=== PATIENT | female | born 1930 | race Caucasian/White ===

== ENCOUNTER 2018-05-02 00:33 | Inpatient (IN) ==
--- NOTE | 2018-05-02 01:46 | Emergency Department Note ---
Disposition Clinical Impression: Sinus tachycardia, Generalized weakness Disposition: Admitted As Inpatient Condition: Fair Time of Disposition: 05:48 General Adult HPI - General Stated complaint: rapid hr and weakness Time Seen by Provider: 05/02/18 01:01 Source: patient Mode of arrival: ambulatory Limitations: no limitations Nursing Notes Reviewed: Yes Vital Signs Reviewed: Yes - History of Present Illness HPI Narrative: Patient is is an 87-year-old female who presents to [facility] ED with a chief complaint of rapid heart rate and generalized weakness. States she was admitted to the [facility] 2 days ago and was just discharged yesterday. States she went home and gradually her heart rate started going up again and she became so weak that she was just sitting there for 3 hours not moving. Her son states that he was very concerned since she lives at home by herself. Patient denies any chest pain or difficulty breathing. No abdominal pain, problems with urination or bowel movements. Past medical history significant for atrial fibrillation. Patient states she was discharged on 50 mg of metoprolol extended release. Onset (ago): hour(s) Pain Severity: moderate Consistency: constant, Worsening Improves with: nothing Worsens with: nothing Associated symptoms: Reports: weakness. Denies: chest pain, cough, fever/chills , nausea/vomiting, shortness of breath Treatments Prior to Arrival: none - Related Data Home Medications Medication Instructions Recorded Confirmed Aspirin [Adult Low Dose Aspirin EC] 81 mg PO DAILY 11/19/15 05/02/18 Calcium Carbonate/Vitamin D3 1 tab PO BID 11/19/15 05/02/18 [Calcium 500-Vit D3 400 Tablet] Galantamine HBr [Razadyne ER] 24 mg PO DAILY 11/19/15 05/02/18 Krill/Om-3/Dha/Epa/Phospho/Ast 2 cap PO DAILY 11/19/15 05/02/18 [Krill Oil 1,000 mg Softgel] Multivitamin [Multi-Day Vitamins] 1 tab PO DAILY 11/19/15 05/02/18 Tiotropium [Spiriva] 1 cap IH DAILY 11/19/15 05/02/18 Vitamin E Acid Succinate [Vitamin 200 unit PO DAILY 11/19/15 05/02/18 E] Budesonide [Pulmicort] 0.5 mg IH BID 08/09/16 05/02/18 Potassium Chloride [Klor-Con 10] 5 meq PO DAILY 10/23/16 05/02/18 Arformoterol Tartrate [Brovana] 15 mcg IH BID 11/13/16 05/02/18 Furosemide [Lasix] 10 mg PO DAILY 05/02/18 05/02/18 Previous Rx's Medication Instructions Recorded Metoprolol Succinate 100 mg PO DAILY #30 tab.er.24h 05/01/18 Allergies Allergy/AdvReac Type Severity Reaction Status Date / Time No Known Allergies Allergy Verified 04/30/18 12:34 All systems ED: reviewed and negative except as stated. Past Medical History - Past Medical History Attestation: Yes The following information was validated with the patient. Source: patient Medical history: Reports: arthritis, COPD, other Surgical history: Reports: appendectomy, cholecystectomy, hysterectomy, other Psychiatric history: Reports: no psych history - Social History Smoking Status: Former smoker Smokeless Tobacco Status: No Alcohol use: Reports: none Drug use: Reports: none Physical Exam - General Limitations: no limitations General appearance: alert, in no apparent distress - Head Head exam: atraumatic, normocephalic, normal inspection - Eye Eye exam: Present: EOMI - ENT ENT exam: normal exam, normal oropharynx, mucous membranes moist - Neck Neck exam: Present: normal inspection, full ROM, trachea midline - Chest Chest inspection: Present: normal inspection, symmetric chest wall rise - Respiratory Respiratory exam: Present: normal lung sounds bilaterally - Cardiovascular Cardiovascular exam: Present: normal rhythm, tachycardia - Abdominal Exam Abdominal exam: Present: soft, Non-Tender. Absent: tenderness, distention, guarding, rebound, rigidity - Extremities Exam Extremities exam: Present: normal inspection, full ROM. Absent: tenderness, pedal edema - Neurological Exam Neurological exam: Present: alert, oriented X3 - Psychiatric Psychiatric exam: Present: normal affect, normal mood - Skin Skin exam: Present: warm, dry, intact, normal color Course Course Narrative: Patient seen and examined. Concerned about rapid heart rate and generalized weakness. On the monitor, it appears she is in sinus tachycardia. EKG also shows that she is in sinus tachycardia. There does appear to be possible underlying multiple P waves though the EKG morphology does not appear to be a flutter. The tachycardia is very regular with P waves and does not appear to be in atrial fibrillation. Dysrhythmia workup was ordered. We will check electrolytes. - Reevaluation(s) Reevaluation #1: Labwork unremarkable. She does look like she is slightly dehydrated. We will give a liter of IV fluids to see if this also helps with her heart rate. We will reassess. Time: 03:02 Reevaluation #2: Patient's heart rate remained persistently in the 120s. 2.5 mg of Lopressor given via IV without response. Patient is extremely concerned about the patient 's heart rate and that she is so weak since she lives alone. We will admit for generalized weakness, persistent tachycardia. 20mg of cardizem was ordered. Time: 05:14 Reevaluation #3: Patient admitted to hospitalist in stable condition. Time: 05:48 Vital Signs Temperature 97.7 F 05/02/18 01:55 Pulse Rate 129 05/02/18 01:55 Respiratory Rate 18 05/02/18 01:55 Blood Pressure 122/97 05/02/18 01:55 O2 Sat by Pulse Oximetry 96 05/02/18 01:55 Temperature 97.7 F 05/02/18 01:55 Pulse Rate 128 05/02/18 05:21 Respiratory Rate 20 05/02/18 05:21 Blood Pressure 116/92 05/02/18 05:21 O2 Sat by Pulse Oximetry 92 05/02/18 05:21 Oxygen Delivery Oxygen Delivery Nasal Cannula Medical Decision Making - Medical Records Medical records reviewed: Yes I reviewed the patient's medical records. - Lab Data Lab results reviewed: Yes I reviewed the patient's lab results. Result diagrams: 05/02/18 01:47 05/02/18 01:47 Lab Results 05/02/18 05/02/18 05/02/18 Range/Units 01:47 01:47 01:47 WBC 5.4 (4.3-11.1) K/mcL RBC 3.89 (3.82-4.97) M/mcL Hgb 12.4 (11.5-15.4) g/dL Hct 37.7 (35.3-44.9) % MCV 96.9 (83.0-100.0) fL MCH 31.9 (28.0-33.3) pg MCHC 32.9 (31.6-35.5) g/dL RDW 13.6 (11.5-14.5) % Plt Count 173 (140-400) K/mcL MPV 10.2 (9.4-12.4) fL Immature Gran % 0.2 (0-4) % Seg Neutrophils % 70.8 % Lymphocytes % 5.2 % Monocytes % 17.3 % Eosinophils % 5.8 % Basophils % 0.7 % Neutrophils # 3.8 (1.6-8.9) K/mcL Lymphocytes # 0.3 L (0.6-4.6) K/mcL Monocytes # 0.9 (0.0-1.3) K/mcL Eosinophils # 0.3 (0.0-0.6) K/mcL Basophils # 0.0 (0.0-0.2) K/mcL PT 11.3 (9.4-12.1) Seconds INR 1.0 APTT 28.9 (26.0-36.0) Seconds Sodium 137 (136-145) mEq/L Potassium 4.4 (3.5-5.1) mEq/L Chloride 106 (98-107) mEq/L Carbon Dioxide 25 (23-29) mEq/L BUN 28 H (8-23) mg/dL Creatinine 0.62 (0.60-1.20) mg/dL Est GFR ( Amer) > 60 (> 60) Est GFR (Non-Af Amer) > 60 (> 60) BUN/Creatinine Ratio 45 H (6-26) Glucose 100 (70-105) mg/dL Calculated Osmolality 290 (280-300) Calcium 9.5 (8.6-10.3) mg/dL Magnesium 2.0 (1.6-2.6) mg/dL Troponin I < 0.03 (< 0.04) ng/mL TSH 0.796 (0.340-5.600) mcIU/mL - Radiology Data Radiology results reviewed: Yes I reviewed the patient's radiology results. Chest X-Ray 05/02/18 01:24 IMPRESSION: No acute abnormality. D/ / José Antonio Barnes MD / José Antonio Barnes MD Interpreting Provider: José Antonio Barnes MD - EKG Data EKG #1 EKG attestation: Yes I reviewed and interpreted this EKG. EKG results narrative: EKG done at 1:00 shows sinus tachycardia with a rate of [address] elevation or depression. Right axis deviation. Appears unchanged from prior EKG done 04/30/2018. Attestation Statement - Attestation Attestation: Dr Luong note: Patient has been seen in conjunction with resident Dr. Jennifer Vargas; please see her charting for complete documentation. Assessment [id number] time with the patient and agree with the patient's treatment and disposition. No pain; persistent /regular tachycardia despite iv fluids and iv lopressor; pt of Dr Mark; pt seen @ outside facility one day ago , but it was for A fib and she has undergone some medication changes in the past 2 days; no n/v/d or fever; son is @ bedside;
[2018-05-02 02:02] LABS: Basophils % 0.7 %; Eosinophils # 0.3 K/mcL (0.0-0.6); Eosinophils % 5.8 %; Hematocrit 37.7 % (35.3-44.9); Hemoglobin 12.4 g/dL (11.5-15.4); Immature Granulocytes % 0.2 % (0-4); Lymphocytes # 0.3 K/mcL (0.6-4.6); Lymphocytes % 5.2 %; Mean Corpuscular HGB Conc 32.9 g/dL (31.6-35.5); Mean Corpuscular Hemoglobin 31.9 pg (28.0-33.3); Mean Corpuscular Volume 96.9 fL (83.0-100.0); Mean Platelet Volume 10.2 fL (9.4-12.4); Monocytes # 0.9 K/mcL (0.0-1.3); Monocytes % 17.3 %; Neutrophils # 3.8 K/mcL (1.6-8.9); Platelet Count 173 K/mcL (140-400); Red Blood Count 3.89 M/mcL (3.82-4.97); Red Cell Distribution Width 13.6 % (11.5-14.5); Segmented Neutrophils % 70.8 %
[2018-05-02 02:10] LABS: Prothrombin Time 11.3 Seconds (9.4-12.1)
[2018-05-02 02:13] LABS: Activated Partial Thrombo Time 28.9 Seconds (26.0-36.0)
[2018-05-02 02:22] LABS: BUN/Creatinine Ratio 45 (6-26); Blood Urea Nitrogen 28 mg/dL (8-23); Calcium 9.5 mg/dL (8.6-10.3); Carbon Dioxide 25 mEq/L (23-29); Chloride 106 mEq/L (98-107); Glucose 100 mg/dL (70-105); Osmolality,Calculated 290 (280-300); Potassium 4.4 mEq/L (3.5-5.1); Sodium 137 mEq/L (136-145); eGFR For Non-African Americans > 60 (> 60)
[2018-05-02 02:23] LABS: Troponin I < 0.03 ng/mL (< 0.04)
[2018-05-02 02:36] LABS: Thyroid Stimulating Hormone 0.796 mcIU/mL (0.340-5.600)
[2018-05-02] MEDS ORDERED: 0.9 % Sodium Chloride 1,000 ML IVC ONE (02:44)
[2018-05-02] MEDS ORDERED: *HR* Metoprolol 5 MG/5 ML VIAL IVP ONE (04:19)
[2018-05-02] MEDS ORDERED: Naloxone 0.4 MG/ML INJ IVP PRN (08:28)
--- NOTE | 2018-05-02 08:51 | Internal Med History&Physical ---
Date of Encounter: 05/02/18 Time of Encounter: 08:16 Internal Medicine - H&P: HPI Chief complaint: fatigue and tiredness History of present illness: Ms. Doty is a 87 year old female with past medical history of atrial fibrillation, hypertension, COPD, NPH, Alzheimer's dementia, gout, spinal stenosis and scoliosis who was recently admitted add [facility] for 2 days for elevated heart rate comes back with complain cough, feeling tired. Caregiver at home noticed patient was feeling tired and was lethargic for 3 hours and when she took her vitals her heart rate was elevated in the 120s. Patient's son being concerned of previous episode approximately her to the ER again. Her EKG in ER was noted to have sinus tachycardia without ischemic changes. Patient received the diltiazem and metoprolol in the ER for heart rate control. Patient denies any chest pain, difficulty breathing, abdominal pain, bowel or urinary complaints, lightheadedness or headaches. Per his son patient has on and off confusion more at night due to her Alzheimer's dementia. Patient currently denying any tingling numbness or weakness. Past Med Surg Social Fam HX - Past Medical History Medical history: arthritis, atrial fibrillation, COPD, hypertension, other (NPH , Spinal stenosis, Gout, Alzihemers dementia) Additional medical history: DJD. HIP PAIN. LIPOSARCOMA OF THE RETROPERITONEUM. ONYCHOMYCOSIS. L THUMB PROXIMAL PHALANX LONG FINGER FX, MINIMAL DISPLACEMENT. LEFT INDEX FINGER PROXIMAL PHALANX FX, NONDISPLACED. OA. H/O COLONIC POLYPS. OSTEOPENIA. FORMER SMOKER, QUIT . LEUKOPENIA. MOLE. H/O DIVERTICULOSIS. REACTIVE AIRWAY DISEASE. HEMORRHOIDS. OVARIAN CANCER. SCOLIOSIS. PAROXSYMAL AFIB. LUNG NODULE. PULMONARY HTN Psychiatric history: no psych history - Past Surgical History Surgical History: appendectomy, cholecystectomy, hysterectomy, other Additional surgical history: 10/23/16 EGD/COLONOSCOPY [email or web address] [place]. LEFT FOOT - Social History Smoking Status: Former smoker Smokeless Tobacco Status: No Alcohol use: none Drug use: none Internal Medicine - H&P: Meds Aspirin [Adult Low Dose Aspirin EC] 81 mg PO DAILY 11/19/15 [History] Calcium Carbonate/Vitamin D3 [Calcium 500-Vit D3 400 Tablet] 1 tab PO BID [History] Galantamine HBr [Razadyne ER] 24 mg PO DAILY 11/19/15 [History] Krill/Om-3/Dha/Epa/Phospho/Ast [Krill Oil 1,000 mg Softgel] 2 cap PO DAILY 11/18 [History] Multivitamin [Multi-Day Vitamins] 1 tab PO DAILY 11/19/15 [History] Tiotropium [Spiriva] 1 cap IH DAILY 11/19/15 [History] Vitamin E Acid Succinate [Vitamin E] 200 unit PO DAILY 11/19/15 [History] Potassium Chloride [Klor-Con 10] 10 meq PO DAILY 10/23/16 [History] Arformoterol Tartrate [Brovana] 15 mcg IH BID 11/13/16 [History] Metoprolol Succinate 100 mg PO DAILY #30 tab.er.24h 05/01/18 [Rx] Albuterol Sulfate [Ventolin Hfa] 2 puff IH Q6H PRN 05/02/18 [History] Budesonide 1 mg IH BID 05/02/18 [History] Furosemide [Lasix] 10 mg PO DAILY 05/02/18 [History] 3 Allergy/AdvReac Type Severity Reaction Status Date / Time No Known Allergies Allergy Verified 04/30/18 12:34 All Systems PM: A 10-system review of systems was performed and is negative for pertinent findings except as documented above in the HPI. - Constitutional Vitals: Temp Pulse Resp BP Pulse Ox 98.0 F 103 19 124/88 95 05/02/18 07:15 05/02/18 07:15 05/02/18 07:15 05/02/18 07:15 05/02/18 07:15 Exam: Const: Vital signs listed above. Appears as stated age. In no acute distress. Alert and oriented Xs 3. Confused at time. No mood disorders noted, calm affect. Eyes: Sclera white, conjunctiva clear, lids are without lag. PERRLA. EOMI ENT: Grossly normal hearing. Oropharanx clear and moist without erythema. Gums pink, good dentition. Lymph/Neck: No masses, thyromegaly, or abnormal cervical notes. No bruit. Tracheal midline. Cardio: RRR, Normal S1, S2, soft systolic murmurs. No rubs or gallops. Skin warm and dry. No peripheral edema. Respiratory: Chest symmetrical, respirations non-labored. No dullness or flatness. Clear bilaterally to auscultation, non-tender to palpitation. Musculo: scoliosis noted. No mela gait disturbance noted. No cyanosis or edema. Pulses normal in all 4 extremities. No atrophy or abnormal movements. Appropriate muscle strength bilaterally. Neurologic: No focal deficits, cranial nerves II-XII grossly intact with normal sensation, reflexes, coordination, muscle strength and tone. GI/Abdomen: Soft, non tender, non distended, no hepatosplemomegaly, normal bowel sounds, no masses noted. Skin: No ulcers or rash noted, warm, dry. Internal Med - H&P Results - Labs CBC & Chem 7: 05/02/18 01:47 05/02/18 01:47 - Assessment and plan (1) Arrhythmia Current Visit: Yes Status: Acute Assessment and plan: - Patient has unremarkable labs. Telemetry reviewed showed occasions of junctional rhythm now in sinus bradycardia. Occasions of SVTs noted. EKG and telemetry with the atrial flutter with variable block on occasions. - Admitted inpatient - Continue telemetry monitoring for now. Possibility of sick sinus syndrome. We will obtain cardiology consultation for further recommendation. - Now in sinus bradycardia. Hold Betablocker and Diltiazem for now. - History of atrial fibrillation. Not on anticoagulation due to history of falls due to NPH. Qualifiers: Arrhythmia type: unspecified cardiac arrhythmia Qualified Code(s): I49.9 - Cardiac arrhythmia, unspecified (2) Atrial fibrillation Current Visit: Yes Status: Chronic Assessment and plan: As above Qualifiers: Atrial fibrillation type: paroxysmal Qualified Code(s): I48.0 - Paroxysmal atrial fibrillation (3) COPD (chronic obstructive pulmonary disease) Current Visit: Yes Status: Acute Assessment and plan: We will continue her medications. Qualifiers: Qualified Code(s): J44.9 - Chronic obstructive pulmonary disease, unspecified (4) Generalized weakness Current Visit: Yes Status: Acute (5) Hypertension Current Visit: No Status: Chronic Assessment and plan: - Monitor for now off medication. Home amlodipine was stopped recently Qualifiers: Hypertension type: essential hypertension Qualified Code(s): I10 - Essential (primary) hypertension (6) Gout Current Visit: Yes Status: Acute Assessment and plan: - Not on any home medication. - Currently asymptomatic. We will monitor for now Qualifiers: Qualified Code(s): M10.9 - Gout, unspecified (7) Spinal stenosis Current Visit: Yes Status: Acute Qualifiers: Qualified Code(s): M48.00 - Spinal stenosis, site unspecified (8) NPH (normal pressure hydrocephalus) Current Visit: Yes Status: Acute - Time Spent With Patient Total time spent is greater than 50% in coordination of care (as documented) at patient's floor/unit and/or counseling patient:
--- NOTE | 2018-05-02 12:08 | Cardiology Consult Note ---
<Hiren Larsen R - Last Filed: 05/02/18 12:10> Date of Encounter: 05/02/18 Time of Encounter: 12:07 Assessment and Plan (1) Atrial fibrillation Current Visit: Yes Status: Chronic Known hx of PAF, second admission in recent days for A-Fib RVR. Pt has dementia and is unable to recall specific events. Reportedly, caregiver noticed she was lethargic with HR 120s. Home medication included BB--was recently switched to Toprol XL 100mg daily. Given pt's dementia she has previously been deemed a poor candidate for full anticoagulation. On ASA only. [id number] 4(HTN, Age, Female). Pt now back in SR. Plan to start Sotalol 40mg BID for rhythm control. Rhythm control strategy will also help with CVA reduction since she cannot be anticoagulated. Will not restart home BB. Daily ECGs. Will need monitored for 5 Sotalol doses to monitor QTc. Baseline ECG 05/02/18 0538 A-Flutter, rate 104. QT/QTc 363/440ms. TTE 09/2016 EF preserved, moderate biatrial enlargement. Recheck TTE. Continue to follow. Discussed and reviewed with Dr. Luke Mark. Qualifiers: Atrial fibrillation type: paroxysmal Qualified Code(s): I48.0 - Paroxysmal atrial fibrillation Discussion w patient/family: The assessment and plan as outlined above was discussed with the patient and/or family members who expressed understanding and agreement. All questions were answered. Thank you for involving us in the care of your patient. Please call with any questions. I will discuss and review with Dr. Luke Mark and make changes as necessary. History of Present Illness Consult date: 05/02/18 Consult reason: A-Fib Chief complaint: weakness History of present illness: Ms. Doty is a 87 year old female with a history of supplement oxygen dependent COPD, pulmonary hypertension, paroxysmal AF, and dementia (poor candidate for Coumadin). She was recently d/c'd from [facility] for A-Fib RVR, returns to ED with complaints of cough, feeling tired. Caregiver at home noticed patient was feeling tired and was lethargic for 3 hours and when she took her vitals her heart rate was elevated in the 120s. Pt received Metoprolol and Cardizem in the ED after she was found to be tachycardic. Initial EKG appeared to be sinus tach, but subsequent ECG pt was in A-Flutter. Currently back in SR. Previous testing: TTE 10/09/2016: LVEF 60%. Normal LV, RV size and function. Mild diastolic dysfunction. Moderate atrial enlargement. Moderate pulmonary hypertension, RVSP 51 mmHg. Holter monitor 09/06/2016: Average heart rate 72. Rare PVCs and occasional PACs. Several brief episodes of SVT, longest 13 beats. Morphology consistent with atrial tachycardia. No pauses. Stress test 05/15/2013: Perfusion, ECG negative for ischemia. Event monitor 12/21/2016: Sinus rhythm and sinus bradycardia. PACs were seen, atrial couplet was noted. Past Med Surg Social Fam HX - Past Medical History Medical history: arthritis, atrial fibrillation, COPD, hypertension, other Additional medical history: DJD. HIP PAIN. LIPOSARCOMA OF THE RETROPERITONEUM. ONYCHOMYCOSIS. L THUMB PROXIMAL PHALANX LONG FINGER FX, MINIMAL DISPLACEMENT. LEFT INDEX FINGER PROXIMAL PHALANX FX, NONDISPLACED. OA. H/O COLONIC POLYPS. OSTEOPENIA. FORMER SMOKER, QUIT 1980S. LEUKOPENIA. MOLE. H/O DIVERTICULOSIS. REACTIVE AIRWAY DISEASE. HEMORRHOIDS. OVARIAN CANCER. SCOLIOSIS. PAROXSYMAL AFIB. LUNG NODULE. PULMONARY HTN Psychiatric history: no psych history - Past Surgical History Surgical History: appendectomy, cholecystectomy, hysterectomy, other Additional surgical history: 10/23/16 EGD/COLONOSCOPY [email or web address]. LEFT FOOT - Social History Smoking Status: Former smoker Smokeless Tobacco Status: No Alcohol use: none Drug use: none Medications and Allergies Aspirin [Adult Low Dose Aspirin EC] 81 mg PO DAILY 11/19/15 [History] Calcium Carbonate/Vitamin D3 [Calcium 500-Vit D3 400 Tablet] 1 tab PO BID [History] Galantamine HBr [Razadyne ER] 24 mg PO DAILY 11/19/15 [History] Krill/Om-3/Dha/Epa/Phospho/Ast [Krill Oil 1,000 mg Softgel] 2 cap PO DAILY 11/18 [History] Multivitamin [Multi-Day Vitamins] 1 tab PO DAILY 11/19/15 [History] Tiotropium [Spiriva] 1 cap IH DAILY 11/19/15 [History] Vitamin E Acid Succinate [Vitamin E] 200 unit PO DAILY 11/19/15 [History] Potassium Chloride [Klor-Con 10] 10 meq PO DAILY 10/23/16 [History] Arformoterol Tartrate [Brovana] 15 mcg IH BID 11/13/16 [History] Metoprolol Succinate 100 mg PO DAILY #30 tab.er.24h 05/01/18 [Rx] Albuterol Sulfate [Ventolin Hfa] 2 puff IH Q6H PRN 05/02/18 [History] Budesonide 1 mg IH BID 05/02/18 [History] Furosemide [Lasix] 10 mg PO DAILY 05/02/18 [History] 3 Allergy/AdvReac Type Severity Reaction Status Date / Time No Known Allergies Allergy Verified 04/30/18 12:34 All Systems Review: The remainder of the systems were reviewed and are negative Physical Examination Vital Signs, Last 4 Hours Temp Pulse Resp BP Pulse Ox 05/02/18 11:40 97.8 F 64 17 122/72 94 05/02/18 10:15 95 Results 05/02/18 01:47 05/02/18 01:47 - Imaging and Cardiology Echo: report reviewed - EKG Interpretation EKG results cardiology: personally reviewed, other (12 hr tele AVG HR 67, SR) Consult Discharge Plan - Plan Referrals: Timoteo Calixto, [Primary Care Provider] - <Luke Mark - Last Filed: 05/02/18 13:37> Date of Encounter: 05/02/18 - Attending Attestation I have personally performed a face to face evaluation on this patient. I have reviewed and agree with the care plan. History and Exam by me shows: Known history of PAF. Presents with PAF. She is mostly asymptomatic, mostly concerned about elevated heart rate. Will add low dose sotalol. Assessment and Plan Discussion w patient/family: The assessment and plan as outlined above was discussed with the patient and/or family members who expressed understanding and agreement. All questions were answered. Thank you for involving us in the care of your patient. Please call with any questions. History of Present Illness History of present illness: Ms. Doty is a 87 year old female All Systems Review: The remainder of the systems were reviewed and are negative Physical Examination Vital Signs, Last 4 Hours Temp Pulse Resp BP Pulse Ox 05/02/18 11:40 97.8 F 64 17 122/72 94 05/02/18 10:15 95 Results 05/02/18 01:47 05/02/18 01:47
[2018-05-02] MEDS ORDERED: Albuterol 2.5 MG/3 ML NEBULIZER ONE (19:19)
[2018-05-02] MEDS ORDERED: Budesonide Neb 0.5 MG/2 ML IH ONE (19:19)
[2018-05-02] MEDS: Budesonide Neb 0.5 MG/2 ML IH SCH (19:25)
[2018-05-02] MEDS: Albuterol 2.5 MG/3 ML NEBULIZER IH SCH (19:25)
[2018-05-02] MEDS ORDERED: ARFORMOTEROL TARTRATE 15 MCG IH SCH (21:00)
[2018-05-02] MEDS ORDERED: CALCIUM VIT D3 PO SCH (21:00)
[2018-05-02] MEDS ORDERED: Budesonide Neb 0.5 MG/2 ML IH SCH (21:00)
[2018-05-03] MEDS ORDERED: Krill Oil 1,000 Mg PO SCH (09:00)
[2018-05-03] MEDS ORDERED: Tiotropium 18 MCG inhalation IH SCH (09:00)
[2018-05-03] MEDS ORDERED: Galantamine Hbr [Razadyne Er] 24 MG PO SCH (09:00)
[2018-05-03] MEDS: Albuterol 2.5 MG/3 ML NEBULIZER IH SCH ×2 (10:30→22:29)
[2018-05-03] MEDS: Budesonide Neb 0.5 MG/2 ML IH SCH ×2 (10:30→22:29)
[2018-05-03] MEDS: Tiotropium 18 MCG inhalation IH SCH (10:32)
[2018-05-03] MEDS: Cholecalciferol (D-3) 1,000 UNIT TABLET PO SCH (10:54)
[2018-05-03] MEDS: Multivit/Ca/Min/Fe/FA 1 TAB TABLET PO SCH (10:54)
[2018-05-03] MEDS: Aspirin Enteric Coated 81 MG Tablet PO SCH (10:55)
[2018-05-03] MEDS: Furosemide 20 MG TABLET PO SCH (10:55)
[2018-05-03] MEDS: Galantamine Hbr [Razadyne Er] 24 MG PO SCH (10:56)
--- NOTE | 2018-05-03 12:59 | Cardiology Progress Note ---
Date of Encounter: 05/03/18 Time of Encounter: 12:00 Assessment and Plan (1) Atrial fibrillation Current Visit: Yes Status: Chronic Known hx of PAF, second admission in recent days for A-Fib RVR. Pt has dementia and is unable to recall specific events. Reportedly, caregiver noticed she was lethargic with HR 120s. Home medication included BB--was recently switched to Toprol XL 100mg daily. Given pt's dementia she has previously been deemed a poor candidate for full anticoagulation. On ASA only. [id number] 4(HTN, Age, Female). Sotalol 40 mg BID started 05/02/18. Daily ECGs. Will need monitored for 5 Sotalol doses to monitor QTc. Baseline ECG 05/02/18 0538 A-Flutter, rate 104. QT/QTc 363/440ms. ECG 05/03/18, 0545, SR, HR 73, QT/QTc 368/393, QRS 94. s/p two doses. TTE 09/2016 EF preserved, moderate biatrial enlargement. Recheck TTE, results pending. Continue to follow. Discussed and reviewed with Dr. Luke Mark. Qualifiers: Atrial fibrillation type: paroxysmal Qualified Code(s): I48.0 - Paroxysmal atrial fibrillation Discussion w patient/family: The assessment and plan as outlined above was discussed with the patient and/or family members who expressed understanding and agreement. All questions were answered. Thank you for involving us in the care of your patient. Please call with any questions. Subjective Principal diagnosis: PAF Interval history: No new complaints. Continues to feel weak. Objective Vital Signs, Last 4 Hours Temp Pulse Resp BP Pulse Ox 05/03/18 12:16 97.8 F 70 18 149/83 92 05/03/18 10:30 16 98 05/03/18 09:00 98.5 F 72 16 155/91 98 General: Conversant, No Apparent Distress HEENT: Atraumatic, Normocephaly, Mucus Membranes Moist Neck: No JVD, Normal carotid pulses Cardiac: Reg Rate and Rhythm, Normal S1 and S2, No Murmur Lungs: Normal Breath Sounds, No Wheeze, Rales, Rhonchi Neuro: Alert and responsive, No focal deficits noted Abdomen: Soft, Non-Tender Skin: No rashes noted on visualized skin Musculoskeletal: No Chest Wall Tenderness Extremities: No Clubbing, No Cyanosis, No Edema, Normal Pulses Results 05/02/18 01:47 05/02/18 01:47 - Imaging and Cardiology Echo: report reviewed - EKG Interpretation EKG results cardiology: personally reviewed Consult Discharge Plan - Plan Referrals: Timoteo Calixto DO [Primary Care Provider] -
--- NOTE | 2018-05-03 13:46 | Internal Med Progress Note ---
Hospitalist Progress Note - Encounter Date of Encounter: 05/03/18 Time of Encounter: 10:46 - Subjective Interval History: Patient seen and examined this morning. No acute overnight events. Does not offer any complains. Wants to go home. - Exam Vitals: Temp Pulse Resp BP Pulse Ox 97.8 F 70 18 149/83 92 05/03/18 12:16 05/03/18 12:16 05/03/18 12:16 05/03/18 12:16 05/03/18 12:16 Exam: Const: Vital signs listed above. Appears as stated age. In no acute distress. Alert and oriented Xs 3. Confused at time. No mood disorders noted, calm affect. Eyes: Sclera white, conjunctiva clear, lids are without lag. PERRLA. EOMI ENT: Grossly normal hearing. Oropharanx clear and moist without erythema. Gums pink, good dentition. Lymph/Neck: No masses, thyromegaly, or abnormal cervical notes. No bruit. Tracheal midline. Cardio: RRR, Normal S1, S2, soft systolic murmurs. No rubs or gallops. Skin warm and dry. No peripheral edema. Respiratory: Chest symmetrical, respirations non-labored. No dullness or flatness. Clear bilaterally to auscultation, non-tender to palpitation. Musculo: scoliosis noted. No mela gait disturbance noted. No cyanosis or edema. Pulses normal in all 4 extremities. No atrophy or abnormal movements. Appropriate muscle strength bilaterally. Neurologic: No focal deficits, cranial nerves II-XII grossly intact with normal sensation, reflexes, coordination, muscle strength and tone. GI/Abdomen: Soft, non tender, non distended, no hepatosplemomegaly, normal bowel sounds, no masses noted. Skin: No ulcers or rash noted, warm, dry. - Assessment and Plan (1) Arrhythmia Current Visit: Yes Status: Acute (2) Atrial fibrillation Current Visit: Yes Status: Chronic (3) COPD (chronic obstructive pulmonary disease) Current Visit: Yes Status: Acute (4) Generalized weakness Current Visit: Yes Status: Acute (5) Hypertension Current Visit: No Status: Chronic (6) Gout Current Visit: Yes Status: Acute (7) Spinal stenosis Current Visit: Yes Status: Acute (8) NPH (normal pressure hydrocephalus) Current Visit: Yes Status: Acute - Summary of Assessment and Plan Summary of Assessment and Plan: SVT - likely from Afib. Occasions of A-flutter. Started on Sotalol 40 BID for rhythm control as recent admission for the same and as will help CVA risk reduction as pt not on AC( due to falls from NPH) - Home Betablocker stopped. c/w Sotalol. Qtc being monitored by daily EKG. - f/u ECHO. last ECHO 09/2016 with EF 60. Mod PHTN. - Continue telemetry monitoring. COPD - c/w home budesonide and albuterol nebs. Hypertension - Monitor for now off medication. - Home amlodipine was stopped recently. Monitor off meds. DVT ppx - Heparin SC - Time Spent with Patient Total time spent is greater than 50% in coordination of care (as documented) at patient's floor/unit and/or counseling patient: Internal Medicine: Result - Labs CBC & Chem 7: 05/02/18 01:47 05/02/18 01:47 - ABG Interpretation ABG results: PT/INR, D-dimer PT 11.3 Seconds (9.4-12.1) 05/02/18 01:47 Consult Discharge Plan - Plan Referrals: Timoteo Calixto DO [Primary Care Provider] - (1) Arrhythmia Qualifiers: Arrhythmia type: unspecified cardiac arrhythmia Qualified Code(s): I49.9 - Cardiac arrhythmia, unspecified (2) Atrial fibrillation Qualifiers: Atrial fibrillation type: paroxysmal Qualified Code(s): I48.0 - Paroxysmal atrial fibrillation (3) COPD (chronic obstructive pulmonary disease) Qualifiers: Qualified Code(s): J44.9 - Chronic obstructive pulmonary disease, unspecified (5) Hypertension Qualifiers: Hypertension type: essential hypertension Qualified Code(s): I10 - Essential (primary) hypertension (6) Gout Qualifiers: Qualified Code(s): M10.9 - Gout, unspecified (7) Spinal stenosis Qualifiers: Qualified Code(s): M48.00 - Spinal stenosis, site unspecified
[2018-05-03] MEDS ORDERED: *HR* Metoprolol 5 MG/5 ML VIAL IVP ONE ×2 (17:35→17:47)
[2018-05-04] MEDS: *HR* Enoxaparin 40 MG/0.4 ML SYRINGE SQ SCH (06:08)
[2018-05-04 06:48] LABS: BUN/Creatinine Ratio 28 (6-26); Blood Urea Nitrogen 16 mg/dL (8-23); Calcium 9.6 mg/dL (8.6-10.3); Carbon Dioxide 30 mEq/L (23-29); Chloride 105 mEq/L (98-107); Glucose 83 mg/dL (70-105); Osmolality,Calculated 290 (280-300); Potassium 3.8 mEq/L (3.5-5.1); Sodium 140 mEq/L (136-145); eGFR For Non-African Americans > 60 (> 60)
[2018-05-04] MEDS: Galantamine Hbr [Razadyne Er] 24 MG PO SCH (08:06)
[2018-05-04] MEDS: Cholecalciferol (D-3) 1,000 UNIT TABLET PO SCH (08:07)
[2018-05-04] MEDS: Multivit/Ca/Min/Fe/FA 1 TAB TABLET PO SCH (08:07)
[2018-05-04] MEDS: Aspirin Enteric Coated 81 MG Tablet PO SCH (08:07)
[2018-05-04] MEDS: Furosemide 20 MG TABLET PO SCH (08:07)
[2018-05-04] MEDS: *HR* Metoprolol 5 MG/5 ML VIAL IVP PRN ×2 (08:07→16:40)
--- NOTE | 2018-05-04 09:43 | Internal Med Progress Note ---
Hospitalist Progress Note - Encounter Date of Encounter: 05/04/18 Time of Encounter: 09:43 - Subjective Interval History: Patient seen and examined this morning. No acute overnight events. Does not offer any complains. - Exam Vitals: Temp Pulse Resp BP Pulse Ox 98.1 F 77 18 171/88 96 05/04/18 07:37 05/04/18 07:37 05/04/18 07:37 05/04/18 07:37 05/04/18 07:37 Exam: Const: Vital signs listed above. Appears as stated age. In no acute distress. Alert and oriented x2. Confused at time. No mood disorders noted, calm affect. Eyes: Sclera white, conjunctiva clear, lids are without lag. PERRLA. EOMI ENT: Grossly normal hearing. Oropharanx clear and moist without erythema. Gums pink, good dentition. Lymph/Neck: No masses, thyromegaly, or abnormal cervical notes. No bruit. Tracheal midline. Cardio: RRR, Normal S1, S2, soft systolic murmurs. No rubs or gallops. Skin warm and dry. No peripheral edema. Respiratory: Chest symmetrical, respirations non-labored. No dullness or flatness. Clear bilaterally to auscultation, non-tender to palpitation. Musculo: scoliosis noted. No mela gait disturbance noted. No cyanosis or edema. Pulses normal in all 4 extremities. No atrophy or abnormal movements. Appropriate muscle strength bilaterally. Neurologic: No focal deficits, cranial nerves II-XII grossly intact with normal sensation, reflexes, coordination, muscle strength and tone. GI/Abdomen: Soft, non tender, non distended, no hepatosplemomegaly, normal bowel sounds, no masses noted. Skin: No ulcers or rash noted, warm, dry. - Assessment and Plan (1) Arrhythmia Current Visit: Yes Status: Acute (2) Atrial fibrillation Current Visit: Yes Status: Chronic (3) COPD (chronic obstructive pulmonary disease) Current Visit: Yes Status: Acute (4) Generalized weakness Current Visit: Yes Status: Acute (5) Hypertension Current Visit: No Status: Chronic (6) Gout Current Visit: Yes Status: Acute (7) Spinal stenosis Current Visit: Yes Status: Acute (8) NPH (normal pressure hydrocephalus) Current Visit: Yes Status: Acute - Summary of Assessment and Plan Summary of Assessment and Plan: SVT - likely from Afib. Occasions of A-flutter. Started on Sotalol 40 BID for rhythm control as recent admission for the same and as will help CVA risk reduction as pt not on AC( due to falls from NPH) - Home Betablocker stopped. c/w Sotalol. Qtc being monitored by daily EKG. - last ECHO 09/2016 with EF 60. Mod PHTN. 05/03 ECHO show EF 50-55, Severe PHTN, mild DD, Normal wall motion - Episodes of Afib with RVR, Currently in sinus rhythm. Sotalol dose increased to 80 BID. Continue to monitor EKG. - Continue telemetry monitoring. - prn metoprolol for control if Afib with RVR. COPD - c/w home budesonide and albuterol nebs. Hypertension - Monitor for now off medication. - Home amlodipine was stopped recently. Monitor off meds. DVT ppx - Heparin SC - Time Spent with Patient Total time spent is greater than 50% in coordination of care (as documented) at patient's floor/unit and/or counseling patient: Internal Medicine: Result - Labs CBC & Chem 7: 05/02/18 01:47 05/04/18 06:17 Labs: BMP 05/04/18 06:17 Sodium 140 Potassium 3.8 Chloride 105 Carbon Dioxide 30 H BUN 16 Creatinine 0.57 L Glucose 83 Calcium 9.6 - ABG Interpretation ABG results: PT/INR, D-dimer PT 11.3 Seconds (9.4-12.1) 05/02/18 01:47 - Impressions Impressions Echocardiogram 05/03/18 07:00 Impressions: LVEF 50-55%. Normal LV chamber size, wall thickness and sytolic function. Mild left ventricular diastolic dysfunction. Mildly dilated right ventricle. Mild right ventricular hypokinesis. Mildly dilated left atrium.Mildly dilated right atrium. Mild mitral regurgitation. Mild tricuspid regurgitation. Severe pulmonary hypertension. Estimated RA pressure is 10 mmHg. Left Ventricular Wall Motion: Rest Echo Findings All wall segments showed normal motion. Findings: Study Quality * Technically adequate exam. ECG Findings * Normal sinus rhythm. Left Ventricle * LVEF 50-55%. * Normal LV chamber size, wall thickness and sytolic function. * Mild left ventricular diastolic dysfunction. Right Ventricle * Mildly dilated right ventricle. * Mild right ventricular hypokinesis. Left Atrium * Mildly dilated left atrium. Right Atrium * Mildly dilated right atrium. Interatrial Septum * Interatrial septum not well evaluated. Aortic Valve * No aortic regurgitation. * No aortic stenosis. * Trileaflet aortic valve with normal function. * Trileaflet aortic valve. Mitral Valve * Mild mitral regurgitation. Tricuspid Valve * Mild tricuspid regurgitation. * Estimated RVSP is 64 mmHg. * Estimated RA pressure is 10 mmHg. * Severe pulmonary hypertension. Pulmonic Valve * Normal pulmonic valve structure. * Mild pulmonic regurgitation. Aorta * Normally sized aortic root. Pericardium * The pericardium appears normal. IVC * Normal IVC dimensions and inspiratory collapse. Consult Discharge Plan - Plan Referrals: Timoteo Calixto DO [Primary Care Provider] - (1) Arrhythmia Qualifiers: Arrhythmia type: unspecified cardiac arrhythmia Qualified Code(s): I49.9 - Cardiac arrhythmia, unspecified (2) Atrial fibrillation Qualifiers: Atrial fibrillation type: paroxysmal Qualified Code(s): I48.0 - Paroxysmal atrial fibrillation (5) Hypertension Qualifiers: Hypertension type: essential hypertension Qualified Code(s): I10 - Essential (primary) hypertension
--- NOTE | 2018-05-04 10:47 | Cardiology Progress Note ---
Date of Encounter: 05/04/18 Time of Encounter: 10:39 Assessment and Plan (1) Atrial fibrillation Current Visit: Yes Status: Chronic Known hx of PAF, second admission in recent days for A-Fib RVR. Pt has dementia and is unable to recall specific events. Reportedly, caregiver noticed she was lethargic with HR 120s. Home medication included BB--was recently switched to Toprol XL 100mg daily. Given pt's dementia she has previously been deemed a poor candidate for full anticoagulation. On ASA only. [id number] 4(HTN, Age, Female). Sotalol 40 mg BID started 05/02/18. Daily ECGs. Will need monitored for 5 Sotalol doses to monitor QTc. Baseline ECG 05/02/18 0538 A-Flutter, rate 104. QT/QTc 363/440ms. ECG 05/03/18, 0545, SR, HR 73, QT/QTc 368/393, QRS 94. ECG 05/03/18, 1700, atrial fibrillation/flutter with RVR. QT/QTc 281/368, QRS 94. s/p four doses and she remains in NSR. Telemetry review shows avg HR 80. ATrial fibrillation with RVR seen for a couple hours last night. NSR overnight. HR currently 58 bpm. TTE 09/2016 EF preserved, moderate biatrial enlargement. Recheck TTE, results pending. Fifth dose is due at 1800. Monitor EKG. Qualifiers: Atrial fibrillation type: paroxysmal Qualified Code(s): I48.0 - Paroxysmal atrial fibrillation Discussion w patient/family: The assessment and plan as outlined above was discussed with the patient and/or family members who expressed understanding and agreement. All questions were answered. Thank you for involving us in the care of your patient. Please call with any questions. Subjective Principal diagnosis: PAF Interval history: No new complaints. States she is ready to go home. Mildly confused this morning. Objective Vital Signs, Last 4 Hours Temp Pulse Resp BP Pulse Ox 05/04/18 07:37 98.1 F 77 18 171/88 96 General: Conversant, No Apparent Distress HEENT: Atraumatic, Normocephaly, Mucus Membranes Moist Neck: No JVD, Normal carotid pulses Cardiac: Reg Rate and Rhythm, Normal S1 and S2, No Murmur Lungs: Normal Breath Sounds, No Wheeze, Rales, Rhonchi Neuro: Alert and responsive, No focal deficits noted Abdomen: Soft, Non-Tender Skin: No rashes noted on visualized skin Musculoskeletal: No Chest Wall Tenderness Extremities: No Clubbing, No Cyanosis, No Edema, Normal Pulses Results 05/02/18 01:47 05/04/18 06:17 Lab Results 05/04/18 05/04/18 06:17 06:17 Sodium 140 Potassium 3.8 Chloride 105 Carbon Dioxide 30 H BUN 16 Creatinine 0.57 L Glucose 83 Calcium 9.6 Magnesium 1.9 - Imaging and Cardiology Echo: report reviewed - EKG Interpretation EKG results cardiology: personally reviewed Consult Discharge Plan - Plan Referrals: Timoteo Calixto DO [Primary Care Provider] -
[2018-05-04] MEDS: Budesonide Neb 0.5 MG/2 ML IH SCH ×2 (10:57→21:58)
[2018-05-04] MEDS: Albuterol 2.5 MG/3 ML NEBULIZER IH SCH ×2 (10:58→21:58)
[2018-05-04] MEDS: Tiotropium 18 MCG inhalation IH SCH (10:59)
--- NOTE | 2018-05-04 15:12 | Electrocardiograph Report ---
[place] [id number] Test Date: 2018-05-02 Pat Name: Liseth Doty Department: EXAM11 Room: 2A63 Gender: F Research Recruiter: : 1930 Requested By: Jennifer Vargas Order Number: [id number] Reading MD: Jocelyne Lockett Measurements Intervals [place] Rate: 128 P: -45 SD: 168 QRS: 95 QRSD: 85 T: 89 QT: 292 QTc: 426 Interpretive Statements Atrial flutter with 2:1 AV block Right axis deviation Electronically Signed On 05-04-2018 15:10:49 EDT by Jocelyne Lockett
--- NOTE | 2018-05-04 15:21 | Electrocardiograph Report ---
[place] [address] Test Date: 2018-05-02 Pat Name: Liseth Doty Department: EXAM11 Room: 2A63 Gender: F Quality Control Engineer: : 1930 Requested By: Wellington Mckeon Order Number: [id number] Reading MD: Jocelyne Lockett Measurements Intervals [place] Rate: 104 P: SC: QRS: 97 QRSD: 84 T: 87 QT: 363 QTc: 440 Interpretive Statements Atrial flutter with predominant 3:1 AV block Right axis deviation Minimal ST depression, diffuse leads Electronically Signed On 05-04-2018 15:19:48 EDT by Jocelyne Lockett
--- NOTE | 2018-05-04 16:04 | Electrocardiograph Report ---
[place] [id number] Test Date: 2018-05-03 Pat Name: Liseth Doty Department: 109 Room: 2A Gender: F Production Quality Analyst: : 1930 Requested By: Hiren Larsen Order Number: [id number] Reading MD: Jocelyne Lockett Measurements Intervals [place] Rate: 73 P: 79 CA: 141 QRS: 65 QRSD: 94 T: 50 QT: 368 QTc: 393 Interpretive Statements SINUS RHYTHM Electronically Signed On 05-04-2018 16:02:49 EDT by Jocelyne Lockett
[2018-05-05] MEDS: *HR* Metoprolol 5 MG/5 ML VIAL IVP PRN (01:37)
[2018-05-05] MEDS: *HR* Enoxaparin 40 MG/0.4 ML SYRINGE SQ SCH (05:59)
[2018-05-05] MEDS: Budesonide Neb 0.5 MG/2 ML IH SCH ×2 (07:29→21:48)
[2018-05-05] MEDS: Albuterol 2.5 MG/3 ML NEBULIZER IH SCH ×2 (07:29→21:48)
[2018-05-05] MEDS: Tiotropium 18 MCG inhalation IH SCH (07:31)
[2018-05-05] MEDS: Aspirin Enteric Coated 81 MG Tablet PO SCH (07:47)
[2018-05-05] MEDS: Cholecalciferol (D-3) 1,000 UNIT TABLET PO SCH (07:47)
[2018-05-05] MEDS: Multivit/Ca/Min/Fe/FA 1 TAB TABLET PO SCH (07:47)
[2018-05-05] MEDS: Furosemide 20 MG TABLET PO SCH (07:47)
[2018-05-05] MEDS: Galantamine Hbr [Razadyne Er] 24 MG PO SCH (07:51)
[2018-05-05 08:22] LABS: BUN/Creatinine Ratio 37 (6-26); Blood Urea Nitrogen 20 mg/dL (8-23); Calcium 9.3 mg/dL (8.6-10.3); Carbon Dioxide 30 mEq/L (23-29); Chloride 104 mEq/L (98-107); Glucose 83 mg/dL (70-105); Magnesium 2.1 mg/dL (1.6-2.6); Osmolality,Calculated 288 (280-300); Sodium 138 mEq/L (136-145); eGFR For Non-African Americans > 60 (> 60)
--- NOTE | 2018-05-05 10:16 | Cardiology Progress Note ---
Date of Encounter: 05/05/18 Time of Encounter: 10:10 Assessment and Plan (1) Atrial fibrillation Current Visit: Yes Status: Chronic Known hx of PAF, second admission in recent days for A-Fib RVR. Pt has dementia and is unable to recall specific events. Reportedly, caregiver noticed she was lethargic with HR 120s. Home medication included BB--was recently switched to Toprol XL 100mg daily. Given pt's dementia she has previously been deemed a poor candidate for full anticoagulation. On ASA only. [id number] 4(HTN, Age, Female). Sotalol 40 mg BID started 05/02/18. Toprol XL stopped. Increased to 80 mg BID yesterday. Baseline ECG 05/02/18 0538 A-Flutter, rate 104. QT/QTc 363/440ms. ECG 05/03/18, 0545, SR, HR 73, QT/QTc 368/393, QRS 94. ECG 05/03/18, 1700, atrial fibrillation/flutter with RVR. QT/QTc 281/368, QRS 94. EKG 05/05/18- SB, HR 57, sinus bradycardia. QT/QTc 440/434. Asymptomatic with HR in upper 50's. Reviewed with Dr. Mark. Okay to continue. EKG ordered for after 1800 dose tonight. If QTc is normal and no problems for afib okay for d/c from cardiology standpoint. Telemetry review shows avg HR 60. Tracing is poor, but appears to be SR-SB all night. No tachycardia seen. TTE noted. LVEF 50-55%. Normal LV chamber size, wall thickness and sytolic function. Mild left ventricular diastolic dysfunction. Mildly dilated right ventricle. Mild right ventricular hypokinesis. Mildly dilated left atrium.Mildly dilated right atrium. Mild mitral regurgitation. Mild tricuspid regurgitation. Severe pulmonary hypertension. Cardiology will sign off if QT/QTC normal after 6th dose. Out-pt f/u. Call with questions. Qualifiers: Atrial fibrillation type: paroxysmal Qualified Code(s): I48.0 - Paroxysmal atrial fibrillation Discussion w patient/family: The assessment and plan as outlined above was discussed with the patient and/or family members who expressed understanding and agreement. All questions were answered. Thank you for involving us in the care of your patient. Please call with any questions. Subjective Principal diagnosis: PAF Interval history: No new complaints. States she is ready to go home. Denies dizziness. Objective Vital Signs, Last 4 Hours Temp Pulse Resp BP Pulse Ox 05/05/18 07:31 19 93 05/05/18 06:56 98.3 F 57 17 146/74 97 General: Conversant, No Apparent Distress, Other (Frail elderly female) HEENT: Atraumatic, Normocephaly, Mucus Membranes Moist, Other (Pupils pinpoint. ) Neck: No JVD, Normal carotid pulses Cardiac: Reg Rate and Rhythm, Normal S1 and S2, No Murmur Lungs: Normal Breath Sounds, No Wheeze, Rales, Rhonchi Neuro: Alert and responsive, No focal deficits noted Abdomen: Soft, Non-Tender Skin: No rashes noted on visualized skin Musculoskeletal: No Chest Wall Tenderness Extremities: No Clubbing, No Cyanosis, No Edema, Normal Pulses Results 05/02/18 01:47 05/05/18 07:24 Lab Results 05/05/18 07:24 Sodium 138 Potassium 4.0 Chloride 104 Carbon Dioxide 30 H BUN 20 Creatinine 0.54 L Glucose 83 Calcium 9.3 Magnesium 2.1 - Imaging and Cardiology Echo: report reviewed - EKG Interpretation EKG results cardiology: personally reviewed Consult Discharge Plan - Plan Referrals: Timoteo Calixto DO [Primary Care Provider] -
--- NOTE | 2018-05-05 11:24 | Internal Med Progress Note ---
Hospitalist Progress Note - Encounter Date of Encounter: 05/05/18 Time of Encounter: 11:19 - Subjective Interval History: Patient seen and examined this morning. No acute overnight events. No new complains. Often confused. - Exam Vitals: Temp Pulse Resp BP Pulse Ox 98.1 F 50 18 156/78 95 05/05/18 11:03 05/05/18 11:03 05/05/18 11:03 05/05/18 11:03 05/05/18 11:03 Exam: Const: Vital signs listed above. Appears as stated age. In no acute distress. Alert and oriented x2. Confused at time. No mood disorders noted, calm affect. Lymph/Neck: No masses, thyromegaly, or abnormal cervical notes. No bruit. Tracheal midline. Cardio: RRR, Normal S1, S2, soft systolic murmurs. No rubs or gallops. Skin warm and dry. No peripheral edema. Respiratory: Chest symmetrical, respirations non-labored. No dullness or flatness. Clear bilaterally to auscultation, non-tender to palpitation. Musculo: scoliosis noted. No mela gait disturbance noted. No cyanosis or edema. Pulses normal in all 4 extremities. No atrophy or abnormal movements. Appropriate muscle strength bilaterally. Neurologic: No focal deficits, cranial nerves II-XII grossly intact with normal sensation, reflexes, coordination, muscle strength and tone. GI/Abdomen: Soft, non tender, non distended, no hepatosplemomegaly, normal bowel sounds, no masses noted. Skin: No ulcers or rash noted, warm, dry. - Assessment and Plan (1) Arrhythmia Current Visit: Yes Status: Acute (2) Atrial fibrillation Current Visit: Yes Status: Chronic (3) COPD (chronic obstructive pulmonary disease) Current Visit: Yes Status: Acute (4) Generalized weakness Current Visit: Yes Status: Acute (5) Hypertension Current Visit: No Status: Chronic (6) Gout Current Visit: Yes Status: Acute (7) Spinal stenosis Current Visit: Yes Status: Acute (8) NPH (normal pressure hydrocephalus) Current Visit: Yes Status: Acute - Summary of Assessment and Plan Summary of Assessment and Plan: AFib - Occasions of A-flutter. Started on Sotalol 40 BID for rhythm control as recent admission for the same and as will help CVA risk reduction as pt not on AC( due to falls from NPH) - Home Betablocker stopped. Qtc being monitored by daily EKG. - last ECHO 09/2016 with EF 60. Mod PHTN. 05/03 ECHO show EF 50-55, Severe PHTN, mild DD, Normal wall motion - Currently in sinus rhythm. Sotalol dose increased to 80 BID. - Continue to monitor EKG. f/u EKG ordered at 1800. - Continue telemetry monitoring. - prn metoprolol for control if Afib with RVR. - Will discharge if EKG with normal Qtc. pending placement. COPD - c/w home budesonide and albuterol nebs. Hypertension - Monitor for now off medication. - Home amlodipine was stopped recently. Monitor off meds. DVT ppx - Heparin SC - Time Spent with Patient Total time spent is greater than 50% in coordination of care (as documented) at patient's floor/unit and/or counseling patient: Internal Medicine: Result - Labs CBC & Chem 7: 05/02/18 01:47 05/05/18 07:24 Labs: BMP 05/05/18 07:24 Sodium 138 Potassium 4.0 Chloride 104 Carbon Dioxide 30 H BUN 20 Creatinine 0.54 L Glucose 83 Calcium 9.3 - ABG Interpretation ABG results: PT/INR, D-dimer PT 11.3 Seconds (9.4-12.1) 05/02/18 01:47 Consult Discharge Plan - Plan Referrals: Timoteo Calixto DO [Primary Care Provider] - (1) Arrhythmia Qualifiers: Arrhythmia type: unspecified cardiac arrhythmia Qualified Code(s): I49.9 - Cardiac arrhythmia, unspecified (2) Atrial fibrillation Qualifiers: Atrial fibrillation type: paroxysmal Qualified Code(s): I48.0 - Paroxysmal atrial fibrillation (5) Hypertension Qualifiers: Hypertension type: essential hypertension Qualified Code(s): I10 - Essential (primary) hypertension
[2018-05-06] MEDS: *HR* Enoxaparin 40 MG/0.4 ML SYRINGE SQ SCH (06:28)
--- NOTE | 2018-05-06 08:36 | Discharge Summary ---
- NOTES TO OUTPATIENT PROVIDER Notes to Outpatient Provider: Needs follow-up with pulmonology for severe pulmonary hypertension and COPD. Orders not resulted at time of discharge: Pending orders 05/04/18 06:00 EKG [ECG 12 lead ECG] [ECG] AM 0600 05/05/18 06:00 EKG [ECG 12 lead ECG] [ECG] AM 0600 05/05/18 19:00 EKG [ECG 12 lead ECG] [ECG] Routine Date of Encounter: 05/06/18 Time of Encounter: 08:33 - Discharge Diagnosis (1) Atrial fibrillation Priority: Primary Status: Chronic Qualifiers: Atrial fibrillation type: paroxysmal Qualified Code(s): I48.0 - Paroxysmal atrial fibrillation (2) COPD (chronic obstructive pulmonary disease) Priority: Secondary Status: Acute Qualifiers: Qualified Code(s): J44.9 - Chronic obstructive pulmonary disease, unspecified (3) Generalized weakness Priority: Secondary Status: Acute (4) Hypertension Priority: Secondary Status: Chronic Qualifiers: Hypertension type: essential hypertension Qualified Code(s): I10 - Essential (primary) hypertension (5) Gout Priority: Secondary Status: Acute Qualifiers: Qualified Code(s): M10.9 - Gout, unspecified (6) Spinal stenosis Priority: Secondary Status: Acute Qualifiers: Qualified Code(s): M48.00 - Spinal stenosis, site unspecified (7) NPH (normal pressure hydrocephalus) Priority: Secondary Status: Acute Hospital course: Ms. Doty is a 87 year old female with past medical history of atrial fibrillation, hypertension, COPD, NPH, Alzheimer's dementia was admitted due to SVT which was found to be due to atrial fibrillation. Occasional episodes of a flutter. She is not on anticoagulation due to falls from her NPH. She was started on sotalol 40 twice a day and had to increase her dose to 80 twice a day with periods of tachycardia in between. EKG was monitored with stable QTC. Echocardiogram follow-up showed EF of 50-55 and severe pulmonary hypertension. Patient will be discharged to a long-term facility. Discharge discussed with: patient, family, social work, case management - Time Spent with Patient Total time spent providing and/or coordinating discharge services: Greater than 30 minutes - Discharge Medications Prescriptions: Sotalol [Betapace] 80 mg PO Q12HR 30 Days #60 tablet Home Medications: Aspirin [Adult Low Dose Aspirin EC] 81 mg PO DAILY 11/19/15 [History] Calcium Carbonate/Vitamin D3 [Calcium 500-Vit D3 400 Tablet] 1 tab PO BID [History] Galantamine HBr [Razadyne ER] 24 mg PO DAILY 11/19/15 [History] Krill/Om-3/Dha/Epa/Phospho/Ast [Krill Oil 1,000 mg Softgel] 2 cap PO DAILY 11/18 [History] Multivitamin [Multi-Day Vitamins] 1 tab PO DAILY 11/19/15 [History] Tiotropium [Spiriva] 1 cap IH DAILY 11/19/15 [History] Vitamin E Acid Succinate [Vitamin E] 200 unit PO DAILY 11/19/15 [History] Potassium Chloride [Klor-Con 10] 10 meq PO DAILY 10/23/16 [History] Arformoterol Tartrate [Brovana] 15 mcg IH BID 11/13/16 [History] Albuterol Sulfate [Ventolin Hfa] 2 puff IH Q6H PRN 05/02/18 [History] Budesonide 1 mg IH BID 05/02/18 [History] Furosemide [Lasix] 10 mg PO DAILY 05/02/18 [History] Sotalol [Betapace] 80 mg PO Q12HR 30 Days #60 tablet 05/06/18 [Rx] Allergies/Adverse Reactions: 3 Allergy/AdvReac Type Severity Reaction Status Date / Time No Known Allergies Allergy Verified 04/30/18 12:34 Date of admission: 05/02/18 08:28 Primary care physician: Timoteo Calixto DO Consults: 05/02/18 08:46 Consult to Cardiology [CONS] Routine Comment: Consulting Provider: Cardiology [place] Reason for Consult: arrythmia, ? sick sinus syndrome Call Completed: Yes 05/02/18 10:11 Consult to Nut Culler [CONS] Routine Reason for SW Consult: please see nurse note; patient lives home alone with private paid home health through [facility]; has home O2, unknown company; 05/06/18 08:32 Consult to Physical Therapy [CONS] Routine Comment: Evaluate, develop and implement POC Reason for Consult: strength assessment, ADL assessment Does patient have active BEDREST order?: No Is patient medically & hemodynamically stable?: Yes Discharging clinician: Wellington Mckeon - Constitutional Vitals: Temp Pulse Resp BP Pulse Ox 97.7 F 50 14 133/62 99 05/06/18 07:48 05/06/18 07:48 05/06/18 07:48 05/06/18 07:48 05/06/18 07:48 General appearance: Present: A&O X 2, pleasant, no acute distress Exam: Const: Vital signs listed above. Appears as stated age. In no acute distress. Alert and oriented x2. Confused at time. No mood disorders noted, calm affect. Cardio: RRR, Normal S1, S2, soft systolic murmurs. No rubs or gallops. Skin warm and dry. No peripheral edema. Respiratory: Chest symmetrical, respirations non-labored. No dullness or flatness. Clear bilaterally to auscultation, non-tender to palpitation. Musculo: scoliosis noted. No mela gait disturbance noted. No cyanosis or edema. Pulses normal in all 4 extremities. Neurologic: No focal deficits, cranial nerves II-XII grossly intact with normal sensation, reflexes, coordination, muscle strength and tone. GI/Abdomen: Soft, non tender, non distended, no hepatosplemomegaly, normal bowel sounds, no masses noted. Skin: No ulcers or rash noted, warm, dry. - Patient Status Disposition: Transfer SNF Condition: Good - Discharge Instructions Follow Up With: Timoteo Calixto DO [Primary Care Provider] - Luke Mark MD [Partnered Physician] - Forms: ED Satisfaction Letter - Diet and Activity Activity: as per physical therapy
[2018-05-06] MEDS: Furosemide 20 MG TABLET PO SCH (09:03)
[2018-05-06] MEDS: Aspirin Enteric Coated 81 MG Tablet PO SCH (09:03)
[2018-05-06] MEDS: Cholecalciferol (D-3) 1,000 UNIT TABLET PO SCH (09:03)
[2018-05-06] MEDS: Multivit/Ca/Min/Fe/FA 1 TAB TABLET PO SCH (09:03)
[2018-05-06] MEDS: Albuterol 2.5 MG/3 ML NEBULIZER IH SCH ×2 (09:14→22:33)
[2018-05-06] MEDS: Budesonide Neb 0.5 MG/2 ML IH SCH ×2 (09:14→22:33)
[2018-05-06] MEDS: Tiotropium 18 MCG inhalation IH SCH (09:16)
[2018-05-06] MEDS: Galantamine Hbr [Razadyne Er] 24 MG PO SCH (12:33)
--- NOTE | 2018-05-06 13:26 | Physician Discharge Referral ---
ExtendedCare Referral Info Transfer To: SNF Institutional Level of Care: Skilled - Diagnosis (1) Atrial fibrillation Status: Chronic (2) COPD (chronic obstructive pulmonary disease) Status: Acute (3) Generalized weakness Status: Acute (4) Hypertension Status: Chronic (5) Gout Status: Acute (6) Spinal stenosis Status: Acute (7) NPH (normal pressure hydrocephalus) Status: Acute - Transfer Medications Prescriptions: Sotalol [Betapace] 80 mg PO Q12HR 30 Days #60 tablet Home Medications: Aspirin [Adult Low Dose Aspirin EC] 81 mg PO DAILY 11/19/15 [History] Calcium Carbonate/Vitamin D3 [Calcium 500-Vit D3 400 Tablet] 1 tab PO BID [History] Galantamine HBr [Razadyne ER] 24 mg PO DAILY 11/19/15 [History] Krill/Om-3/Dha/Epa/Phospho/Ast [Krill Oil 1,000 mg Softgel] 2 cap PO DAILY 11/18 [History] Multivitamin [Multi-Day Vitamins] 1 tab PO DAILY 11/19/15 [History] Tiotropium [Spiriva] 1 cap IH DAILY 11/19/15 [History] Vitamin E Acid Succinate [Vitamin E] 200 unit PO DAILY 11/19/15 [History] Potassium Chloride [Klor-Con 10] 10 meq PO DAILY 10/23/16 [History] Arformoterol Tartrate [Brovana] 15 mcg IH BID 11/13/16 [History] Albuterol Sulfate [Ventolin Hfa] 2 puff IH Q6H PRN 05/02/18 [History] Budesonide 1 mg IH BID 05/02/18 [History] Furosemide [Lasix] 10 mg PO DAILY 05/02/18 [History] Sotalol [Betapace] 80 mg PO Q12HR 30 Days #60 tablet 05/06/18 [Rx] Allergies/Adverse Reactions: 3 Allergy/AdvReac Type Severity Reaction Status Date / Time No Known Allergies Allergy Verified 04/30/18 12:34 - Respiratory Orders Oxygen / L per min (2-3) Smoking Cessation: Smoking cessation has been advised. For more information, call the [place] Tobacco Quit Line at 9-878-VXDJ-NOW. - Advance Directives Code Status: Full Code - Rehabiliation Orders Rehab Potential: Fair Rehab Orders: Evaluation for Physical Therapy - Diet Orders Regular CERTIFICATION: I certify that the transfer of the above named patient to an Extended Care Facility is necessary for the continuing treatment of the diagnosis listed. The above information is true and accurate reflection of patient's current condition. Confidential - Redisclosure prohibited without a patient's written consent.
--- NOTE | 2018-05-07 05:32 | Event Note ---
Date of Encounter: 05/07/18 Time of Encounter: 05:29 I was paged to beside by RN 87 y/o f hx COPD has increased productive cough but patient denies feeling ill. She is 98% on 6 L . Cardio: RRR Lungs: decreased breath sounds not wheeze, cough Plan to prepare for discharge: - CBC - chest X-ray
[2018-05-07 08:24] VITALS: BP 155/71
--- NOTE | 2018-05-07 10:37 | Electrocardiograph Report ---
[place] [address] Test Date: 2018-05-05 Pat Name: Liseth Doty Department: 109 Room: 2A Gender: Civil Engineer Land Development: : 1930 Requested By: Hiren Larsen Order Number: [id number] Reading MD: Terrance Dunne Measurements Intervals [place] Rate: 66 P: 82 MO: 144 QRS: 80 QRSD: 92 T: 67 QT: 390 QTc: 403 Interpretive Statements SINUS RHYTHM Electronically Signed On 05-07-2018 10:35:37 EDT by Terrance Dunne
[2018-05-07] MEDS: Tiotropium 18 MCG inhalation IH SCH (11:11)
[2018-05-07] MEDS: Budesonide Neb 0.5 MG/2 ML IH SCH (11:11)
[2018-05-07] MEDS: Albuterol 2.5 MG/3 ML NEBULIZER IH SCH (11:11)
[2018-05-07] MEDS: *HR* Enoxaparin 40 MG/0.4 ML SYRINGE SQ SCH (11:15)
[2018-05-07] MEDS: Galantamine Hbr [Razadyne Er] 24 MG PO SCH (11:15)
[2018-05-07] MEDS: Cholecalciferol (D-3) 1,000 UNIT TABLET PO SCH (11:16)
[2018-05-07] MEDS: Multivit/Ca/Min/Fe/FA 1 TAB TABLET PO SCH (11:16)
[2018-05-07] MEDS: Aspirin Enteric Coated 81 MG Tablet PO SCH (11:16)
[2018-05-07] MEDS: Furosemide 20 MG TABLET PO SCH (11:17)
--- NOTE | 2018-05-08 11:06 | Electrocardiograph Report ---
[place] [address] Test Date: 2018-05-03 Pat Name: Liseth Doty Department: 109 Room: 2A63 Gender: Marketing Designer: : 1930 Requested By: Wellington Mckeon Order Number: [id number] Reading MD: Terrance Dunne Measurements Intervals [place] Rate: 143 P: [place]: 0 QRS: 78 QRSD: 90 T: 48 QT: 275 QTc: 358 Interpretive Statements ATRIAL TACHYCARDIA NONSPECIFIC ST DEPRESSION Electronically Signed On 05-08-2018 11:03:59 EDT by Terrance Dunne
--- NOTE | 2018-05-08 11:06 | Electrocardiograph Report ---
[address] [place], [place] [address] Test Date: 2018-05-03 Pat Name: Liseth Doty Department: 109 Room: 2A63 Gender: F Table Worker: : 1930 Requested By: Wellington Mckeon Order Number: [id number] Reading MD: Terrance Dunne Measurements Intervals [place] Rate: 153 P: [place]: 0 QRS: 81 QRSD: 90 T: 49 QT: 281 QTc: 368 Interpretive Statements ATRIAL FLUTTER/TACHYCARDIA WITH RAPID VENTRICULAR RESPONSE ST DEPRESSION, CONSIDER SUBENDOCARDIAL INJURY Electronically Signed On 05-08-2018 11:05:02 EDT by Terrance Dunne
--- NOTE | 2018-05-09 15:28 | Electrocardiograph Report ---
[place] [address] Test Date: 2018-05-05 Pat Name: Liseth Doty Department: 109 Room: 2A Gender: F Stripper [employer]: : 1930 Requested By: Wellington Mckeon Order Number: [id number] Reading MD: Terrance Dunne Measurements Intervals [place] Rate: 77 P: 82 ND: 138 QRS: 46 QRSD: 89 T: 61 QT: 392 QTc: 424 Interpretive Statements SINUS RHYTHM Electronically Signed On 05-09-2018 15:26:35 EDT by Terrance Dunne
--- NOTE | 2018-05-09 17:36 | Electrocardiograph Report ---
[address] [place] [address] Test Date: 2018-05-05 Pat Name: Liseth Doty Department: 109 Room: 2A Gender: F Accreditation Manager: : 1930 Requested By: Chato Connell Order Number: [id number] Reading MD: Charlene Jdud Measurements Intervals [place] Rate: 57 P: 60 SD: 146 QRS: 66 QRSD: 90 T: 63 QT: 440 QTc: 434 Interpretive Statements SINUS BRADYCARDIA Electronically Signed On 05-09-2018 17:34:51 EDT by Charlene Judd
--- NOTE | 2018-05-09 17:39 | Electrocardiograph Report ---
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
== END 2018-05-07 11:57 | DRG 309 ==
LOC: EMEROOARM 00:33 → 2ANU 00:33 → SUATTDRO 05:39 → 2ANU 06:21 → SUATTDRO 08:28
PROVIDERS: ADMIT Internal Medicine; ATTEND Internal Medicine

== ENCOUNTER 2019-06-14 16:01 | Observation (INO) ==
[2019-06-14] MEDS ORDERED: methylPREDNISolone 125 MG/2 ML VIAL IVP ONE (16:21)
[2019-06-14] MEDS ORDERED: Ipratropium/Albuterol Neb 3 ML IH ONE (16:21)
[2019-06-14 18:18] LABS: Basophils % 0.3 %; Eosinophils # 0.1 K/mcL (0.0-0.6); Eosinophils % 1.7 %; Hematocrit 35.5 % (35.3-44.9); Hemoglobin 11.8 g/dL (11.5-15.4); Immature Granulocytes % 0.4 % (0-4); Lymphocytes # 0.4 K/mcL (0.6-4.6); Mean Corpuscular HGB Conc 33.2 g/dL (31.6-35.5); Mean Corpuscular Hemoglobin 32.3 pg (28.0-33.3); Mean Corpuscular Volume 97.3 fL (83.0-100.0); Monocytes # 0.7 K/mcL (0.0-1.3); Monocytes % 10.2 %; Neutrophils # 5.8 K/mcL (1.6-8.9); Platelet Count 166 K/mcL (140-400); Red Blood Count 3.65 M/mcL (3.82-4.97); Red Cell Distribution Width 13.4 % (11.5-14.5); Segmented Neutrophils % 82.4 %; White Blood Count 7.1 K/mcL (4.3-11.1)
[2019-06-14 18:25] LABS: Bilirubin,Urine Negative (Negative); Blood,Urine Negative (Negative); Clarity,Urine Clear (Clear); Color,Urine Yellow (Yellow); Glucose,Urine (UA) Normal (Normal); Ketones,Urine Negative (Negative); Leukocyte Esterase,Urine Negative (Negative); Nitrite,Urine Negative (Negative); PH,Urine 6.5 pH Units (5.0-8.0); Protein,Urine Negative (Neg-Trace); Specific Gravity,Urine 1.016 (1.010-1.025); Urobilinogen,Urine Normal (Normal)
[2019-06-14 18:39] LABS: BUN/Creatinine Ratio 39 (6-26); Blood Urea Nitrogen 21 mg/dL (8-23); Calcium 9.8 mg/dL (8.6-10.3); Carbon Dioxide 31 mEq/L (23-29); Chloride 98 mEq/L (98-107); Glucose 92 mg/dL (70-105); Osmolality,Calculated 281 (280-300); Potassium 4.4 mEq/L (3.5-5.1); Sodium 134 mEq/L (136-145); Troponin I < 0.03 ng/mL (< 0.04); eGFR For African Americans > 60 (> 60); eGFR For Non-African Americans > 60 (> 60)
[2019-06-14] MEDS ORDERED: cefTRIAXone 1,000 MG in Water for inj. (sterile) 10 ML IVP ONE (19:13)
[2019-06-14] MEDS ORDERED: Azithromycin 500 MG in 0.9 % Sodium Chloride 250 ML IVPB ONE (19:13)
[2019-06-14] MEDS ORDERED: Naloxone 0.4 MG/ML INJ IVP PRN (22:12)
[2019-06-14] MEDS ORDERED: Benzonatate 100 MG CAPSULE PO PRN (22:15)
[2019-06-14 22:29] LABS: VBG HCO3 30 mEq/L (21-27); VBG PCO2 50 mmHg (41-51); VBG PH 7.39 pH Units (7.32-7.42); VBG PO2 212 mmHg (25-50)
[2019-06-14] MEDS: traZODone 50 MG TABLET PO SCH (23:50)
[2019-06-15] MEDS ORDERED: Ipratropium/Albuterol Neb 3 ML IH SCH
[2019-06-15] MEDS: Melatonin 3 MG TABLET PO SCH ×2 (02:57→21:42)
[2019-06-15 04:28] LABS: Basophils % 0.1 %; Hematocrit 33.6 % (35.3-44.9); Immature Granulocytes % 0.6 % (0-4); Lymphocytes # 0.3 K/mcL (0.6-4.6); Lymphocytes % 3.6 %; Mean Corpuscular HGB Conc 32.7 g/dL (31.6-35.5); Mean Corpuscular Hemoglobin 32.2 pg (28.0-33.3); Mean Corpuscular Volume 98.2 fL (83.0-100.0); Mean Platelet Volume 10.4 fL (9.4-12.4); Monocytes # 0.1 K/mcL (0.0-1.3); Monocytes % 0.8 %; Neutrophils # 6.9 K/mcL (1.6-8.9); Platelet Count 162 K/mcL (140-400); Red Blood Count 3.42 M/mcL (3.82-4.97); Red Cell Distribution Width 13.3 % (11.5-14.5); Segmented Neutrophils % 94.9 %; White Blood Count 7.2 K/mcL (4.3-11.1)
[2019-06-15] MEDS: Ipratropium/Albuterol Neb 3 ML IH SCH ×4 (04:28→22:44)
[2019-06-15 04:43] LABS: Prothrombin Time 11.5 Seconds (9.4-12.1)
[2019-06-15 04:46] LABS: Alanine Aminotransferase 17 Units/L (7-52); Albumin 3.3 g/dL (3.5-5.7); Albumin/Globulin Ratio 1.5 (1.1-2.2); Alkaline Phosphatase 50 Units/L (34-104); Aspartate Amino Transferase 16 Units/L (13-39); BUN/Creatinine Ratio 51 (6-26); Bilirubin,Total 0.3 mg/dL (0.3-1.0); Blood Urea Nitrogen 25 mg/dL (8-23); Calcium 9.3 mg/dL (8.6-10.3); Carbon Dioxide 27 mEq/L (23-29); Chloride 99 mEq/L (98-107); Globulin 2.2 g/dL (2.4-3.5); Glucose 131 mg/dL (70-105); Magnesium 1.8 mg/dL (1.6-2.6); Osmolality,Calculated 286 (280-300); Phosphorous 4.1 mg/dL (2.7-4.5); Potassium 4.3 mEq/L (3.5-5.1); Sodium 135 mEq/L (136-145); Total Protein 5.5 g/dL (6.4-8.9); eGFR For African Americans > 60 (> 60); eGFR For Non-African Americans > 60 (> 60)
[2019-06-15] MEDS: *HR* Heparin 5,000 UNIT/ML VIAL SQ SCH ×3 (06:11→21:42)
[2019-06-15] MEDS: Furosemide 20 MG TABLET PO SCH (07:49)
[2019-06-15] MEDS: Aspirin Enteric Coated 81 MG Tablet PO SCH (07:50)
[2019-06-15] MEDS: Acetaminophen 325 MG TABLET PO SCH ×2 (07:50→21:42)
[2019-06-15] MEDS: Thiamine (B-1) 100 MG TABLET PO SCH (07:50)
[2019-06-15] MEDS: CITALOPRAM 10 MG/5 ML PO SCH ×2 (07:50→10:52)
[2019-06-15] MEDS: Tiotropium 18 MCG inhalation IH SCH (10:44)
[2019-06-15] MEDS: predniSONE 20 MG TABLET PO SCH (13:28)
[2019-06-15] MEDS ORDERED: Patient Taking Own Medication 1 EACH PO SCH (21:00)
[2019-06-15] MEDS: traZODone 50 MG TABLET PO SCH (21:42)
[2019-06-15 22:10] LABS: Adenovirus Not Detected (Not Detect); Bordetella Pertussis Not Detected (Not Detect); Chlamydophila pneumoniae Not Detected (Not Detect); Coronavirus 229E Not Detected (Not Detect); Coronavirus HKU1 Not Detected (Not Detect); Coronavirus NL63 Not Detected (Not Detect); Coronavirus OC43 Not Detected (Not Detect); Human Metapneumovirus Not Detected (Not Detect); Influenza A Subtype 2009 H1 Not Detected (Not Detect); Influenza A Untypeable Not Detected (Not Detect); Influenza B Not Detected (Not Detect); Mycoplasma pneumoniae Not Detected (Not Detect); Parainfluenza Virus 1 Not Detected (Not Detect); Parainfluenza Virus 2 Not Detected (Not Detect); Parainfluenza Virus 3 Not Detected (Not Detect); Parainfluenza Virus 4 Not Detected (Not Detect); Respiratory Syncytial Virus Not Detected (Not Detect)
[2019-06-15 22:19] LABS: Human Rhinovirus/Enterovirus DETECTED (Not Detect)
[2019-06-15] MEDS ORDERED: Azithromycin 500 MG in 0.9 % Sodium Chloride 250 ML IVPB SCH (23:00)
[2019-06-16] MEDS: Ipratropium/Albuterol Neb 3 ML IH SCH ×2 (04:32→10:29)
[2019-06-16] MEDS: *HR* Heparin 5,000 UNIT/ML VIAL SQ SCH (05:45)
[2019-06-16] MEDS: Tiotropium 18 MCG inhalation IH SCH (07:29)
[2019-06-16] MEDS: Thiamine (B-1) 100 MG TABLET PO SCH (08:44)
[2019-06-16] MEDS: predniSONE 20 MG TABLET PO SCH (08:44)
[2019-06-16] MEDS: Acetaminophen 325 MG TABLET PO SCH (08:44)
[2019-06-16] MEDS: Furosemide 20 MG TABLET PO SCH (08:44)
[2019-06-16] MEDS: Aspirin Enteric Coated 81 MG Tablet PO SCH (08:45)
[2019-06-16 11:08] VITALS: BP 148/67
[2019-06-16] MEDS ORDERED: Doxycycline 100 MG CAPSULE PO SCH (21:00)
== END 2019-06-16 13:21 | disposition home health service (06) ==
LOC: 3ANU 16:01 → EMEROOARM 16:01 → 3ANU 20:25
PROVIDERS: ADMIT Family Medicine; ATTEND Family Medicine